=== PATIENT | female | born 1955 | race American Indian/Alaskan Native ===

== ENCOUNTER 2018-06-02 15:45 | Emergency (ER) | payer MEDICARE ==
[~2018-06-02] VITALS: Ht 165.1 cm; Wt 93.2 kg
[2018-06-02 15:52] VITALS: TEMP 98.3
[2018-06-02] MEDS ORDERED: XANAX 1MG1 MG PO (16:13)
[2018-06-02] MEDS ORDERED: OXY IR5 MG PO (16:14)
[2018-06-02] MEDS ORDERED: ZYBAN150 M1 (16:14)
[2018-06-02] MEDS ORDERED: NAPROSYN500 MG PO (16:15)
[2018-06-02] MEDS ORDERED: NORVASC 10MG10 MG PO ×2 (16:15→18:08)
[2018-06-02] MEDS ORDERED: FLEXERIL 1010 MG/TAB PO (16:15)
[2018-06-02] MEDS ORDERED: BYSTOLIC20 MG PO ×2 (16:16→18:08)
[2018-06-02] MEDS ORDERED: PRAVACHOL 40MG40 MG PO ×2 (16:16→18:08)
[2018-06-02] MEDS ORDERED: BYSTOLIC10 MG PO ×2 (16:16→18:08)
[2018-06-02] MEDS ORDERED: AMBIEN 10MG10 MG PO (16:17)
[2018-06-02] MEDS ORDERED: SEROQUEL XR200 MG PO ×2 (16:17→18:08)
[2018-06-02 18:00] VITALS: BP 146/84; PULSE 70
[2018-06-02] MEDS ORDERED: ZYBAN150 M1 PO (18:08)
[2018-06-02] MEDS ORDERED: CATAPRES 0.1MG0.1 MG PO (18:11)
== END 2018-06-02 18:26 | disposition home or self-care (01) ==
LOC: COL.ER 15:45
DX: S06.0X0A Concussion without loss of consciousness, initial encounter (principal); I10 Essential (primary) hypertension; F17.210 Nicotine dependence, cigarettes, uncomplicated; W22.8XXA Striking against or struck by other objects, initial encounter

== ENCOUNTER 2019-01-18 22:54 | Emergency (ER) | payer MEDICARE, MEDICAID ==
[~2019-01-18] VITALS: Ht 165.1 cm; Wt 84.1 kg
[~2019-01-18 22:54] MED LIST: AMBIEN 10MG10 MG PO; BYSTOLIC10 MG PO; BYSTOLIC20 MG PO; CATAPRES 0.1MG0.1 MG PO; FLEXERIL 1010 MG/TAB PO; NAPROSYN500 MG PO; NORVASC 10MG10 MG PO; OXY IR5 MG PO; PRAVACHOL 40MG40 MG PO; SEROQUEL XR200 MG PO; XANAX 1MG1 MG PO; ZYBAN150 M1; ZYBAN150 M1 PO
[2019-01-18] MEDS ORDERED: DIOVAN HCT 25 M1 TA1 PO (23:06)
[2019-01-18 23:58] LABS: BASO # 0.1 (0.0-0.2); BASO % 1.1 % (0.0-2.0); EOS # 0.2 (0.0-0.7); EOS % 3.4 % (0-4.0); GRAN # 2.9 (1.4-6.5); GRAN % 51.5 % (42.2-75.2); HEMOGLOBIN 11.5 g/dl (12.5-16.0); LYMPH # 1.9 (1.2-3.4); LYMPH % 33.9 % (20.0-51.0); MEAN CELL VOLUME 94 fl (80.0-100.0); MEAN CORPUSCULAR HEMOGLOBIN 30 pg (27.0-31.0); MEAN CORPUSCULAR HGB CONC 33 g/dl (33.0-37.0); MEAN PLATELET VOLUME 9.2 fl (7.4-10.4); MONO # 0.6 (0.1-0.6); MONO % 9.9 % (1.7-9.3); PLATELET COUNT 198 K/mm3 (130-400); RED BLOOD COUNT 3.78 M/mm3 (4.10-5.30); REDCELL DISTRIBUTION WIDTH-CV 13.6 % (11.5-14.5)
[2019-01-19 00:03] LABS: HEMATOCRIT 35.4 % (37.0-47.0)
[2019-01-19 00:07] LABS: ALANINE AMINOTRANSFERASE 22 U/L (9-52); ALBUMIN 4.1 gm/dL (3.5-5.0); ALKALINE PHOSPHATASE 54 U/L (50-136); ANION GAP 8 mmol/L (7-16); AST,SGOT 23 U/L (15-37); BILIRUBIN,TOTAL 0.2 mg/dL (0.0-1.0); BLOOD UREA NITROGEN 17 mg/dL (7-17); CALCIUM 9.4 mg/dL (8.4-10.2); CARBON DIOXIDE 25 mmol/L (22-30); CHLORIDE 101 mmol/L (98-107); CREATININE, serum 1.34 (0.52-1.25); GLUCOSE 94 mg/dL (74-106); POTASSIUM 3.8 mmol/L (3.4-5.0); SODIUM 134 mmol/L (137-145); TOTAL PROTEIN 6.8 gm/dL (6.4-8.2)
[2019-01-19 00:09] LABS: INR 0.9 (0.8-3.0)
[2019-01-19 00:18] LABS: TROPONIN-I < 0.012 ng/mL (0.000-0.035)
[2019-01-19 02:07] LABS: TRICYCLIC ANTIDEPRESS URINE POSITIVE
[2019-01-19 04:13] VITALS: BP 136/76; PULSE 60; TEMP 98.1
== END 2019-01-19 04:13 | disposition home or self-care (01) ==
LOC: COL.ER 22:54
PROVIDERS: Emergency Medicine
DX: T43.295A Adverse effect of other antidepressants, initial encounter (principal); I10 Essential (primary) hypertension; E78.5 Hyperlipidemia, unspecified; F43.10 Post-traumatic stress disorder, unspecified; F17.210 Nicotine dependence, cigarettes, uncomplicated; Z90.710 Acquired absence of both cervix and uterus; Z86.73 Personal history of transient ischemic attack (TIA), and cerebral infarction without residual deficits; Z90.89 Acquired absence of other organs; Z72.820 Sleep deprivation
CPT/HCPCS: J7030

== ENCOUNTER 2019-01-22 11:38 | Emergency (ER) | payer MEDICARE, MEDICAID ==
[~2019-01-22] VITALS: Ht 165.1 cm; Wt 81.8 kg
[~2019-01-22 11:38] MED LIST changes: +DIOVAN HCT 25 M1 TA1 PO
[2019-01-22 11:43] VITALS: TEMP 98.1
[2019-01-22 12:27] LABS: BASO # 0.1 (0.0-0.2); BASO % 0.8 % (0.0-2.0); EOS # 0.2 (0.0-0.7); EOS % 2.9 % (0-4.0); GRAN # 3.4 (1.4-6.5); GRAN % 53.7 % (42.2-75.2); HEMOGLOBIN 11.9 g/dl (12.5-16.0); LYMPH # 2.1 (1.2-3.4); LYMPH % 33.6 % (20.0-51.0); MEAN CELL VOLUME 94 fl (80.0-100.0); MEAN CORPUSCULAR HEMOGLOBIN 31 pg (27.0-31.0); MEAN CORPUSCULAR HGB CONC 33 g/dl (33.0-37.0); MEAN PLATELET VOLUME 9.4 fl (7.4-10.4); MONO # 0.6 (0.1-0.6); MONO % 8.8 % (1.7-9.3); PLATELET COUNT 205 K/mm3 (130-400); RED BLOOD COUNT 3.87 M/mm3 (4.10-5.30); REDCELL DISTRIBUTION WIDTH-CV 14.1 % (11.5-14.5)
[2019-01-22 12:28] LABS: PROTHROMBIN TIME 11.4 SECONDS (9.7-12.8)
[2019-01-22 12:34] LABS: ALANINE AMINOTRANSFERASE 21 U/L (9-52); ALBUMIN 4.3 gm/dL (3.5-5.0); ALKALINE PHOSPHATASE 53 U/L (50-136); ANION GAP 8 mmol/L (7-16); AST,SGOT 18 U/L (15-37); BILIRUBIN,TOTAL 0.3 mg/dL (0.0-1.0); BLOOD UREA NITROGEN 20 mg/dL (7-17); CALCIUM 9.2 mg/dL (8.4-10.2); CARBON DIOXIDE 21 mmol/L (22-30); CHLORIDE 113 mmol/L (98-107); CREATININE, serum 1.09 (0.52-1.25); GLUCOSE 95 mg/dL (74-106); POTASSIUM 3.7 mmol/L (3.4-5.0); SODIUM 142 mmol/L (137-145); TOTAL PROTEIN 7.1 gm/dL (6.4-8.2)
[2019-01-22 12:41] LABS: HEMATOCRIT 36.4 % (37.0-47.0)
[2019-01-22 12:48] LABS: TROPONIN-I < 0.012 ng/mL (0.000-0.035)
[2019-01-22] MEDS ORDERED: ZYBAN150 M1 (13:41)
[2019-01-22 14:43] VITALS: BP 149/89; PULSE 59
== END 2019-01-22 14:45 | disposition home or self-care (01) ==
LOC: COL.ER 11:38
PROVIDERS: Emergency Medicine
DX: G81.91 Hemiplegia, unspecified affecting right dominant side (principal); R20.0 Anesthesia of skin
CPT/HCPCS: J7030

== ENCOUNTER 2019-11-20 13:00 | Outpatient (RCR) | payer MEDICARE, MEDICAID ==
[~2019-11-20 13:00] MED LIST changes: +DIOVAN HCT 12.51 TA2 PO; -DIOVAN HCT 25 M1 TA1 PO
[2019-11-22] MEDS ORDERED: LIPITOR 80MG80 MG PO (20:17)
[2019-11-22] MEDS ORDERED: TESSALON PERLE200 MG PO (20:19)
[2019-11-22] MEDS ORDERED: BYSTOLIC10 MG PO (20:20)
[2019-11-22] MEDS ORDERED: ELIQUIS 5MG PO (20:22)
[2019-11-23] MEDS ORDERED: ASPIRIN E.C. 8181 MG PO (11:29)
== END 2019-12-10 | disposition home or self-care (01) ==
LOC: MKS.ESL.OT
DX: I69.921 Dysphasia following unspecified cerebrovascular disease (principal); I69.821 Dysphasia following other cerebrovascular disease; I69.851 Hemiplegia and hemiparesis following other cerebrovascular disease affecting right dominant side

== ENCOUNTER 2019-11-22 12:23 | Inpatient (IN) | payer MEDICARE, MEDICAID ==
[~2019-11-22] VITALS: Ht 165.1 cm; Wt 86.4 kg
[2019-11-22 13:02] LABS: BASO # 0.1 (0.0-0.2); BASO % 0.9 % (0.0-2.0); EOS # 0.2 (0.0-0.7); EOS % 2.4 % (0-4.0); GRAN # 3.6 (1.4-6.5); GRAN % 51.3 % (42.2-75.2); HEMOGLOBIN 11.5 g/dl (12.5-16.0); LYMPH # 2.6 (1.2-3.4); MEAN CELL VOLUME 96 fl (80.0-100.0); MEAN CORPUSCULAR HEMOGLOBIN 31 pg (27.0-31.0); MEAN CORPUSCULAR HGB CONC 32 g/dl (33.0-37.0); MEAN PLATELET VOLUME 9.6 fl (7.4-10.4); MONO # 0.6 (0.1-0.6); PLATELET COUNT 183 K/mm3 (130-400); RED BLOOD COUNT 3.74 M/mm3 (4.10-5.30); REDCELL DISTRIBUTION WIDTH-CV 13.4 % (11.5-14.5)
[2019-11-22 13:03] LABS: INR 1.1 (0.8-3.0); PROTHROMBIN TIME 12.7 SECONDS (9.7-12.8)
[2019-11-22 13:06] LABS: PARTIAL THROMBOPLASTIN TIME 35.7 SECONDS (26.0-37.0)
[2019-11-22 13:08] LABS: HEMATOCRIT 35.7 % (37.0-47.0)
[2019-11-22 13:33] LABS: ALANINE AMINOTRANSFERASE 16 U/L (4-34); ALBUMIN 4.1 gm/dL (3.5-5.0); ALKALINE PHOSPHATASE 81 U/L (50-136); ANION GAP 8 mmol/L (7-16); AST,SGOT 46 U/L (15-37); BILIRUBIN,TOTAL 0.5 mg/dL (0.0-1.0); BLOOD UREA NITROGEN 15 mg/dL (7-17); CALCIUM 8.9 mg/dL (8.4-10.2); CARBON DIOXIDE 23 mmol/L (22-30); CHLORIDE 108 mmol/L (98-107); CREATININE, serum 1.18 (0.52-1.25); GLUCOSE 83 mg/dL (74-106); POTASSIUM 4.3 mmol/L (3.4-5.0); SODIUM 138 mmol/L (137-145); TOTAL PROTEIN 6.7 gm/dL (6.4-8.2)
[2019-11-22 13:47] LABS: TROPONIN-I < 0.012 ng/mL (0.000-0.035)
--- NOTE | 2019-11-22 19:20 | NUR ---
Report received from TYLER Delvalle at this time. Patient stated that she want hungry. Had order for [facility] diet. Called dietary and ordered tray for patient. Patient voices no further needs at this time.
--- NOTE | 2019-11-22 20:15 | NUR ---
Patient assessed at this time. Alert and oriented x 4, and able to make needs known. Denies having pain and discomfort. Peripheral INT to left AC flushed. Site is without redness, warmth, swelling, and pain. Denies having SOB and dyspnea. LS CTA. Respirations even and unlabored. HRR. Capillary refill less than 3 seconds. Non-tenting skin turgor. BSA x 4. Abdomen soft and non-tedner. No edema. Completed 5 page with patient. Went over medicaton. Patient had brought in medications from home, and stated that she took all over her HS medications already. Explained to patient that she could not take any home medications while in the hospital. Asked patient for medications so that they could be locked up, and patient agreeable after explaining policy. Patient voices no further questions, needs, or concerns at this time. Updated about MRI and Echo scheduled for tomorrow. Resting in bed with call light within reach.
[2019-11-22] MEDS ORDERED: LIPITOR 80MG80 MG PO (20:17)
[2019-11-22] MEDS ORDERED: TESSALON PERLE200 MG PO (20:19)
[2019-11-22] MEDS ORDERED: BYSTOLIC10 MG PO (20:20)
[2019-11-22] MEDS ORDERED: ELIQUIS 5MG PO (20:22)
[2019-11-22 21:05] VITALS: BP 116/53; PULSE 76; TEMP 98
[2019-11-23 01:08] VITALS: BP 101/53; PULSE 62; TEMP 97.9
[2019-11-23 04:46] VITALS: BP 127/58; PULSE 66; TEMP 98.2
--- NOTE | 2019-11-23 06:27 | NUR ---
Patient has been resting in bed with call light within reach. Has voiced no questions, needs, or concerns.
[2019-11-23 07:10] LABS: BASO # 0.1 (0.0-0.2); BASO % 1.1 % (0.0-2.0); EOS # 0.2 (0.0-0.7); EOS % 3.3 % (0-4.0); GRAN % 54.6 % (42.2-75.2); HEMOGLOBIN 11.5 g/dl (12.5-16.0); LYMPH # 1.8 (1.2-3.4); LYMPH % 33.6 % (20.0-51.0); MEAN CELL VOLUME 95 fl (80.0-100.0); MEAN CORPUSCULAR HEMOGLOBIN 31 pg (27.0-31.0); MEAN CORPUSCULAR HGB CONC 32 g/dl (33.0-37.0); MONO # 0.4 (0.1-0.6); PLATELET COUNT 185 K/mm3 (130-400); RED BLOOD COUNT 3.76 M/mm3 (4.10-5.30); REDCELL DISTRIBUTION WIDTH-CV 13.5 % (11.5-14.5)
[2019-11-23 07:14] VITALS: BP 125/92; PULSE 58; TEMP 98
[2019-11-23 07:14] LABS: HEMATOCRIT 35.6 % (37.0-47.0)
[2019-11-23 07:29] LABS: CALCIUM 8.9 mg/dL (8.4-10.2); CREATININE, serum 1.25 (0.52-1.25); POTASSIUM 4.1 mmol/L (3.4-5.0)
--- NOTE | 2019-11-23 10:58 | NUR ---
KEKE met with the patient to discuss discharge plan. The patient lives in [place] with her daughter, Hayde (ph#[phone]). She reports independence with ADLs and has a cane. The patient's PCP is Dr. Alexandrea Perdomo and she receives her medications at [facility]. She reports occasional difficulties affording her meds. She states that she is on a set income. SW informed her of [facility] and [facility]. The patient states that she is aware of [facility]. The patient does not have a DPOA-HC and she was not interested in completing a DPOA-HC at this time. She states that she is not . She has four children: Kenneth Freedman, Chavez Freedman, Diana Jameson, and Hayde. The patient had a stroke 13 months ago. She has been receiving outpatient PT/OT/ST at [facility] on [address]. PT recommends that she continuing outpatient therapy. SW discussed this with the patient. The patient states that she would like to and already plans on continuing outpatient therapy upon discharge. She states that she already has appointments set up at [facility] on [address]. The patient plans to return home with her daughter and outpatient therapy. No additional needs at this time.
[2019-11-23 11:07] VITALS: BP 119/98; PULSE 58; TEMP 98.1
[2019-11-23] MEDS ORDERED: ASPIRIN E.C. 8181 MG PO (11:29)
--- NOTE | 2019-11-23 12:57 | NUR ---
Patient discharge education provided. Understanding verbalized. Patient escorted to private vehilce. Care completed.
--- NOTE | 2019-11-23 13:35 | NUR ---
Primary nurse was assisted with [id number] patient care by [employer] [employer] student Rashida Nuñez and [employer] [employer] instructor Berenice Hodge RN-BC
== END 2019-11-23 12:57 | disposition home or self-care (01) | DRG 69 ==
LOC: COL.ER 12:23 → MEDICAL 16:31
PROVIDERS: Emergency Medicine; ADMIT Student in an Organized Health Care Education/Training Program
DX: G45.9 Transient cerebral ischemic attack, unspecified (principal); I48.20 Chronic atrial fibrillation, unspecified; G47.00 Insomnia, unspecified; F17.200 Nicotine dependence, unspecified, uncomplicated; F32.9 Major depressive disorder, single episode, unspecified; F41.9 Anxiety disorder, unspecified; F17.210 Nicotine dependence, cigarettes, uncomplicated; F43.10 Post-traumatic stress disorder, unspecified; Z86.73 Personal history of transient ischemic attack (TIA), and cerebral infarction without residual deficits; Z79.01 Long term (current) use of anticoagulants; Z90.89 Acquired absence of other organs; Z90.710 Acquired absence of both cervix and uterus
CPT/HCPCS: 99222-AI; 99239; A9585; Q9967

== ENCOUNTER 2020-02-19 14:15 | Outpatient (RCR) | payer MEDICARE, MEDICAID ==
[~2020-02-19 14:15] MED LIST changes: +ASPIRIN E.C. 8181 MG PO; +ELIQUIS 5MG PO; +LIPITOR 80MG80 MG PO; +TESSALON PERLE200 MG PO
== END 2020-02-26 | disposition home or self-care (01) ==
LOC: MKS.ESL.PT
DX: I63.89 Other cerebral infarction (principal)

== ENCOUNTER → 2020-10-10 | Outpatient (CLI) | payer MEDICARE, MEDICAID | LOC: COL.RAD 09-26 13:30 | DX: Z12.2 Encounter for screening for malignant neoplasm of respiratory organs (principal); Z87.891 Personal history of nicotine dependence ==